=== PATIENT | female | born 1960 | race Caucasian/White ===

== ENCOUNTER 2020-05-01 14:47 | Emergency (ER) | payer OTHER ==
[~2020-05-01] VITALS: Ht 157.5 cm; Wt 68.0 kg
[2020-05-01 15:27] VITALS: Ht 157.5 cm; Wt 68.0 kg
[2020-05-01 18:30] VITALS: BP 118/77
== END 2020-05-01 18:30 | disposition home or self-care (01) ==
LOC: ED 14:47
DX: S02.2XXA Fracture of nasal bones, initial encounter for closed fracture (principal); I10 Essential (primary) hypertension; W18.30XA Fall on same level, unspecified, initial encounter; Y93.89 Activity, other specified; Y92.89 Other specified places as the place of occurrence of the external cause; Y99.8 Other external cause status